=== PATIENT | male | born 1970 | race African-American/Black ===

== ENCOUNTER 2016-06-17 14:57 | Emergency (ER) | payer SELFPAY ==
[2016-06-17] MEDS ORDERED: OXYCODONE HCL IR 5 MG TABLET PO ONE (16:32)
--- NOTE | 2016-06-17 16:32 | ER Document Report ---
ED Medical Screen (RME) - General Chief Complaint: Abdominal Pain Stated Complaint: ABDOMINAL PAIN Time Seen by Provider: 06/17/16 16:29 Mode of Arrival: Ambulatory Information source: Patient Notes: This is a 45-year-old man with a history of alcoholic pancreatitis in the past who presents to the emergency room with epigastric pain for one day. Patient states he drank heavily yesterday TRAVEL OUTSIDE OF THE [place] IN LAST 30 DAYS: No - Related Data Allergies/Adverse Reactions: morphine [Morphine] Allergy (Verified 06/17/16 16:19) Past Medical History - Past Medical History Cardiac Medical History: Reports: Hx Hypertension Renal/ Medical History: Denies: Hx Peritoneal Dialysis Past Surgical History: Reports: Hx Orthopedic Surgery - left arm - Immunizations Immunizations up to date: No Hx Diphtheria, Pertussis, Tetanus Vaccination: No Physical Exam - Vital signs Vitals: Temp Pulse Resp BP Pulse Ox 97.5 F 89 18 142/109 H 100 06/17/16 15:10 06/17/16 15:10 06/17/16 15:10 06/17/16 15:10 06/17/16 15:10 Notes: Physical exam: GENERAL: 45-year-old man, alert and oriented 3, no acute distress HEAD: Atraumatic, normocephalic. EYES: Pupils equal round and reactive to light, extraocular movements intact, sclera anicteric, conjunctiva are normal. ENT: TMs normal, nares patent, oropharynx clear without exudates. Moist mucous membranes. NECK: Normal range of motion, supple without lymphadenopathy or JVD. LUNGS: Breath sounds clear to auscultation bilaterally and equal. No wheezes rales or rhonchi. HEART: Regular rate and rhythm without murmurs, rubs or gallops. ABDOMEN: Soft, normoactive bowel sounds. Mid epigastric tenderness without rebound or guarding. No masses appreciated. EXTREMITIES: Normal range of motion, no pitting or edema. No clubbing or cyanosis. NEUROLOGICAL: Cranial nerves II through XII grossly intact. Normal speech, normal gait. PSYCH: Normal mood, normal affect. SKIN: Warm, Dry, normal turgor, no rashes or lesions noted. Course - Vital Signs Vital signs: Temp Pulse Resp BP Pulse Ox 97.5 F 89 18 142/109 H 100 06/17/16 15:10 06/17/16 15:10 06/17/16 15:10 06/17/16 15:10 06/17/16 15:10
[2016-06-17] MEDS ORDERED: PROMETHAZINE HCL 25 MG TABLET PO ONE (16:33)
[2016-06-17 17:21] LABS: ABSOLUTE LYMPHOCYTES (AUTO) 0.8 10^3/uL (0.5-4.7); ABSOLUTE MONOCYTES (AUTO) 0.4 10^3/uL (0.1-1.4); ABSOLUTE NEUT (AUTO) 6.9 10^3/uL (1.7-8.2); BASOPHILS % (AUTO) 0.3 % (0-2); HEMATOCRIT 51.6 % (37.9-51.0); HEMOGLOBIN 17.4 g/dL (13.5-17.0); HGB HCT DIFFERENCE 0.6; LYMPHOCYTES % (AUTO) 9.7 % (13-45); MEAN CORPUSCULAR HGB CONC 33.8 g/dL (32.0-36.0); MEAN CORPUSCULAR VOLUME 95 fl (80-97); MONOCYTES % (AUTO) 5.4 % (3-13); RED BLOOD COUNT 5.45 10^6/uL (4.35-5.55); RED CELL DISTRIBUTION WIDTH 13.1 % (11.5-14.0); SEGMENTED NEUTROPHILS % (AUTO) 84.6 % (42-78); WHITE BLOOD COUNT 8.2 10^3/uL (4.0-10.5)
[2016-06-17 17:31] LABS: ALANINE AMINOTRANSFERASE 37 U/L (21-72); ALBUMIN 5.2 g/dL (3.5-5.0); ALKALINE PHOSPHATASE 115 U/L (38-126); ASPARTATE AMINO TRANSFERASE 60 U/L (17-59); BILIRUBIN,DIRECT 0.6 mg/dL (0.0-0.4); BLOOD UREA NITROGEN 13 mg/dL (7-20); CALCIUM 10.6 mg/dL (8.4-10.2); CREATININE RESULT 0.82 mg/dL (0.52-1.25); GLUCOSE 114 mg/dL (75-110); TOTAL PROTEIN 10.2 g/dL (6.3-8.2)
[2016-06-17 17:51] LABS: LIPASE 3206.1 U/L (23-300); POTASSIUM 3.6 mmol/L (3.6-5.0)
[2016-06-17 17:52] LABS: ANION GAP 24 (5-19); CARBON DIOXIDE 24 mmol/L (22-30); CHLORIDE 96 mmol/L (98-107); SODIUM 144.2 mmol/L (137-145)
[2016-06-17] MEDS ORDERED: LIDOCAINE 2% VISCOUS SOLN 20 ML UDCUP PO ONE (17:52)
[2016-06-17] MEDS ORDERED: MAG HYDROX/AL HYDROX/SIMETH SUSP 30 ML UDCUP PO ONE (17:52)
[2016-06-17] MEDS ORDERED: METOCLOPRAMIDE HCL ORAL SOLN 10 MG/10 ML UDCUP PO ONE (17:52)
[2016-06-17] MEDS ORDERED: NORMAL SALINE 1000 ML 1,000 ML IV PRN (17:55)
[2016-06-17] MEDS ORDERED: NORMAL SALINE 1000 ML 1,000 ML IV ONE (19:06)
[2016-06-17] MEDS ORDERED: FENTANYL CITRATE INJ/PF 100 MCG/2 ML AMPUL IV PRN (19:07)
--- NOTE | 2016-06-17 19:31 | ER Document Report ---
ED General - General Chief Complaint: Abdominal Pain Stated Complaint: ABDOMINAL PAIN Time Seen by Provider: 06/17/16 16:29 Mode of Arrival: Ambulatory Notes: Patient is a 45-year-old male with past history of alcohol-induced pancreatitis who presents with 24 hours of epigastric abdominal pain with associated nausea. Describes the pain as a severe, constant, stabbing pain that radiates through to his back. States this feels exactly the same as when he has had pancreatitis in the past. Admits to heavy alcohol use last night. He has tolerated oral intake today without difficulty. He has not seen his primary care doctor regarding today's concerns. He denies any chest pain, shortness of breath, headache, neck pain or altered mental status. No fever. TRAVEL OUTSIDE OF THE [place] IN LAST 30 DAYS: No - Related Data Allergies/Adverse Reactions: morphine [Morphine] Allergy (Verified 06/17/16 16:19) Past Medical History - General Information source: Patient - Social History Smoking Status: Never Smoker Frequency of alcohol use: Social Drug Abuse: None Lives with: Spouse/Significant other Family History: Hypertension, Malignancy Patient has suicidal ideation: No Patient has homicidal ideation: No - Past Medical History Cardiac Medical History: Reports: Hx Hypertension Renal/ Medical History: Denies: Hx Peritoneal Dialysis Past Surgical History: Reports: Hx Orthopedic Surgery - left arm - Immunizations Immunizations up to date: No Hx Diphtheria, Pertussis, Tetanus Vaccination: No Review of Systems - Review of Systems Notes: Constitutional: Negative for fever. HENT: Negative for sore throat. Eyes: Negative for visual changes. Cardiovascular: Negative for chest pain. Respiratory: Negative for shortness of breath. Gastrointestinal: Positive for abdominal pain, and nausea Genitourinary: Negative for dysuria. Musculoskeletal: Negative for back pain. Skin: Negative for rash. Neurological: Negative for headaches, weakness or numbness. 10 point ROS negative except as marked above and in HPI. Physical Exam - Vital signs Vitals: Temp Pulse Resp BP Pulse Ox 97.5 F 89 18 142/109 H 100 06/17/16 15:10 06/17/16 15:10 06/17/16 15:10 06/17/16 15:10 06/17/16 15:10 Interpretation: Hypertensive Notes: PHYSICAL EXAMINATION: GENERAL: Well-appearing, well-nourished and in no acute distress. HEAD: Atraumatic, normocephalic. EYES: Pupils equal round and reactive to light, extraocular movements intact, sclera anicteric, conjunctiva are normal. ENT: nares patent, oropharynx clear without exudates. Moist mucous membranes. NECK: Normal range of motion, supple without lymphadenopathy LUNGS: Breath sounds clear to auscultation bilaterally and equal. No wheezes rales or rhonchi. HEART: Regular rate and rhythm without murmurs ABDOMEN: Soft, focal epigastric tenderness to palpation, normoactive bowel sounds. No guarding, no rebound. No masses appreciated. EXTREMITIES: Normal range of motion, no pitting or edema. No cyanosis. NEUROLOGICAL: No focal neurological deficits. Moves all extremities spontaneously and on command. PSYCH: Normal mood, normal affect. SKIN: Warm, Dry, normal turgor, no rashes or lesions noted. Course - Re-evaluation Re-evalutation: 06/17/16 19:26 Patient presents with clinical history and exam and labs to suggest acute pancreatitis. Lipase is markedly elevated today. Patient admits to alcohol use as the trigger for the acute episode of pancreatitis and has a history of the same in the past. At time of arrival, patient's vitals are within normal limits, they are well-appearing and in no acute distress. The patient has tolerated oral intake without difficulty and has not had any vomiting with today 's presentation. Pain was able to be controlled here in the emergency department with oral medications. Monroe score is 0. Patient is an appropriate candidate for outpatient management of this acute episode of pancreatitis using oral pain medications, antiemetics, and recommendations for a clear liquid diet until pain has resolved. At this time will discharge with return precautions and follow-up recommendations. Verbal discharge instructions given a the bedside and opportunity for questions given. Medication warnings reviewed. Patient is in agreement with this plan and has verbalized understanding of return precautions and the need for primary care follow-up in the next 24-72 hours. - Vital Signs Vital signs: Temp Pulse Resp BP Pulse Ox 97.6 F 71 16 139/88 H 96 06/17/16 20:09 06/17/16 20:09 06/17/16 20:09 06/17/16 20:09 06/17/16 20:09 - Laboratory Result Diagrams: 06/17/16 16:54 06/17/16 16:54 Laboratory results interpreted by me: 06/17/16 06/17/16 16:54 16:54 Hgb 17.4 H Hct 51.6 H Seg Neutrophils % 84.6 H Lymphocytes % 9.7 L Chloride 96 L Anion Gap 24 H Glucose 114 H Calcium 10.6 H Direct Bilirubin 0.6 H AST 60 H Total Protein 10.2 H Albumin 5.2 H Lipase 3206.1 H Discharge - Discharge Clinical Impression: Alcohol abuse Acute pancreatitis Qualifiers: Pancreatitis type: alcohol induced Acute pancreatitis complication: unspecified Qualified Code(s): K85.20 - Alcohol induced acute pancreatitis without necrosis or infection Condition: Good Disposition: HOME, SELF-CARE Additional Instructions: You were seen today for alcohol-induced pancreatitis. Please avoid alcohol in any quantity in the future as this could cause a recurrence of your pancreatitis. Please keep in mind that pancreatitis can be a very serious condition that can even result in . Your case today appears very mild and it is safe for you to go home today with medications for pain and nausea. Please drink plenty of fluids over the next several days and try to avoid food ingestion until your pain is resolved. Please return to the emergency department immediately if you develop persistent vomiting that prohibits you from taking your medications or keeping fluids down, you develop a fever of greater than 101F, you have worsening pain, you become confused, you become short of breath, or have any other symptoms that are worrisome to you. Please follow-up with your primary care doctor in the next 24-48 hours. Prescriptions: Ondansetron [Zofran Odt 4 mg Tablet] 1 - 2 tab PO Q4H PRN #15 tab.rapdis PRN Reason: For Nausea/Vomiting Oxycodone HCl [Oxycontin Ir 5 Mg Tablet] 1 - 2 tab PO Q4H PRN #25 tablet PRN Reason: For Pain
[2016-06-17 20:10] VITALS: BP 139/88
== END 2016-06-17 20:10 | disposition home or self-care (01) ==
LOC: ER 14:57
DX: F10.19 Alcohol abuse with unspecified alcohol-induced disorder (principal); K85.20 Alcohol induced acute pancreatitis without necrosis or infection; R10.13 Epigastric pain; R11.0 Nausea; M54.9 Dorsalgia, unspecified; Z88.6 Allergy status to analgesic agent; I10 Essential (primary) hypertension
CPT/HCPCS: 36415; 80053; 83690; 85025; 99284

== ENCOUNTER → 2016-06-23 | Outpatient (CLI) | payer OTHER ==
[2016-06-23 13:54] LABS: ALANINE AMINOTRANSFERASE 22 U/L (21-72); ALBUMIN 4.6 g/dL (3.5-5.0); ALKALINE PHOSPHATASE 73 U/L (38-126); AMYLASE 77 U/L (30-110); ANION GAP 15 (5-19); ASPARTATE AMINO TRANSFERASE 24 U/L (17-59); BILIRUBIN,DIRECT 0.4 mg/dL (0.0-0.4); BILIRUBIN,TOTAL 0.6 mg/dL (0.2-1.3); BLOOD UREA NITROGEN 10 mg/dL (7-20); CALCIUM 10.4 mg/dL (8.4-10.2); CARBON DIOXIDE 31 mmol/L (22-30); CHLORIDE 97 mmol/L (98-107); CHOLESTEROL 160.08 mg/dL (0-200); CREATININE RESULT 0.64 mg/dL (0.52-1.25); Direct HDL 39 mg/dL (>40); GLUCOSE 87 mg/dL (75-110); POTASSIUM 3.9 mmol/L (3.6-5.0); SODIUM 142.9 mmol/L (137-145); TOTAL PROTEIN 8.8 g/dL (6.3-8.2); TRIGLYCERIDES 127 mg/dL (<150)
[2016-06-23 14:05] LABS: DIRECT LDL 87 mg/dL (<100)
== END ==
LOC: CCC 12:59
DX: I10 Essential (primary) hypertension (principal); K85.90 Acute pancreatitis without necrosis or infection, unspecified
CPT/HCPCS: 36415; 80053; 80061; 82150

== ENCOUNTER 2017-04-05 11:25 | Emergency (ER) | payer SELFPAY ==
--- NOTE | 2017-04-05 13:03 | ER Document Report ---
ED General - General Chief Complaint: Cyst Stated Complaint: ABSCESS ON RIGHT SIDE OF FACE Time Seen by Provider: 04/05/17 13:01 Mode of Arrival: Ambulatory Information source: Patient Notes: Patient is a 46-year-old -[place] male who presents with "lump" that started yesterday while driving home. He states it does hurt to touch but he denies any fever, chills, drainage, redness, warmth, difficulty swallowing, difficulty breathing. He was given a Benadryl last night by his sister which she states caused him to go to sleep. He also reports a secondary lump on the left side of his face that will intermittently swell up and then go down on its own. He has never seen a doctor for this. He has no history of abscess or MRSA. TRAVEL OUTSIDE OF THE [place] IN LAST 30 DAYS: No - Related Data Allergies/Adverse Reactions: morphine [Morphine] Allergy (Verified 06/17/16 16:19) Past Medical History - General Information source: Patient - Social History Smoking Status: Current Every Day Smoker Frequency of alcohol use: Social Drug Abuse: Marijuana Family History: Hypertension, Malignancy Patient has suicidal ideation: No Patient has homicidal ideation: No - Past Medical History Cardiac Medical History: Reports: Hx Hypertension Renal/ Medical History: Denies: Hx Peritoneal Dialysis Past Surgical History: Reports: Hx Orthopedic Surgery - left arm - Immunizations Immunizations up to date: No Hx Diphtheria, Pertussis, Tetanus Vaccination: No Review of Systems - Review of Systems Constitutional: See HPI EENT: See HPI Cardiovascular: No symptoms reported Respiratory: No symptoms reported Gastrointestinal: No symptoms reported Genitourinary: No symptoms reported Male Genitourinary: No symptoms reported Musculoskeletal: No symptoms reported Skin: See HPI Hematologic/Lymphatic: No symptoms reported Neurological/Psychological: No symptoms reported Physical Exam - Vital signs Vitals: Temp Pulse Resp BP Pulse Ox 99.6 F 85 16 174/103 H 98 04/05/17 11:31 04/05/17 11:31 04/05/17 11:31 04/05/17 11:31 04/05/17 11:31 - Notes Notes: PHYSICAL EXAM: CONSTITUTIONAL: Alert and oriented, well-appearing and in no acute distress. No respiratory distress, well-hydrated, speaking in full sentences without difficulty. HENT: Normocephalic, atraumatic. Nares clear without erythema, septal hematoma or deviation, airway patent. Oropharynx clear without erythema, tonsilar exudate or malocclusion. Trachea midline. Uvula midline. Moist mucous membranes. 2 cm round indurated area to skin just inferior to mandible below right ear without drainage, warmth scarring and erythema. Also 1 cm round indurated area to skin of left cheek without fluctuance, erythema, warmth. No submandibular, deep space tenderness to palpation or induration or fluctuance. EYES: Pupils equal round and reactive to light, EOM intact. Sclera anicteric, conjunctiva are normal. No entrapment. NECK: supple without lymphadenopathy. No midline tenderness or paraspinous muscle spasms. No step-offs or deformities. ROM intact. HEART: Regular rate and rhythm without murmurs. LUNGS: CTAB and equal. No wheezes, rales or rhonchi. EXTREMITIES: no bony tenderness, erythema, edema, ecchymosis or deformity. Normal range of motion, no pitting edema. No cyanosis. Cap Refill <3 seconds. NEURO: Cranial nerves grossly intact. Normal sensory/motor exams. PSYCH: Normal mood, normal affect. SKIN: Warm and dry. Normal turgor. No rashes or lesions noted. Course - Re-evaluation Re-evalutation: 04/05/17 13:03 Patient seen and examined. Well-appearing, well-hydrated, no respiratory distress. Elevated blood pressure in triage but otherwise normal vital signs. Speaking in full sentences without difficulty. Lesions to face consistent with cellulitis versus folliculitis. No evidence of abscess at this point. Low suspicion for Santos's angina, parotitis, sepsis or other emergent condition. Will treat with antibiotics and anti-inflammatories, advised to apply heat to area. Patient in agreement with plan. At this time, will discharge with return precautions and follow-up recommendations. Verbal discharge instructions given at the bedside and opportunity for questions given. Medication warnings reviewed. Patient is in agreement with this plan and has verbalized understanding of return precautions and the need for primary care follow-up in the next 24-72 hours. - Vital Signs Vital signs: Temp Pulse Resp BP Pulse Ox 99.6 F 85 16 174/103 H 98 04/05/17 11:31 04/05/17 11:31 04/05/17 11:31 04/05/17 11:31 04/05/17 11:31 Discharge - Discharge Clinical Impression: Cellulitis of face Condition: Stable Disposition: HOME, SELF-CARE Additional Instructions: Your exam today is consistent with cellulitis, most likely coming from an infected hair follicle. Does not appear to be a swollen lymph node. We have prescribed antibiotics, take until completed. Return if any worsening symptoms. You can also apply heat to the area. CELLULITIS: You have an infection of your skin and underlying soft tissues called cellulitis. This is due to bacteria, which can enter through any break in the skin, or even through an irritated hair follicle. Untreated, cellulitis will usually worsen. Antibiotics are required. Usually, warm packs or warm soaks, and elevation of the infected area are recommended. You should start getting better within 24 to 36 hours. Most infections respond quickly to the right medication. Follow-up care is important, however, to check for abscess (boil) formation, unsuspected foreign body, or resistant infection. If you develop fever, chills, or if the area of infection is becoming rapidly more swollen or painful, call the doctor at once. MRSA CELLULITIS: You have an infection of your skin and underlying soft tissues called cellulitis. This is due to bacteria, which can enter through any break in the skin, or even through an irritated hair follicle. Untreated, cellulitis will usually worsen and may form an abscess which requires draining. Although many bacterial organisms can cause cellulitis and abscess formations, the most likely bacteria is Methicillin-Resistant Staph Aureus, or MRSA for short. Antibiotics are required. Usually, warm packs or warm soaks, and elevation of the infected area are recommended. You should start getting better within 24 to 36 hours. Most infections respond quickly to the right medication. Follow-up care is important, however, to check for abscess (boil) formation, unsuspected foreign body, or resistant infection. If you develop fever, chills, or if the area of infection is becoming rapidly more swollen or painful, call the doctor at once. ANTIBIOTIC THERAPY: You have been given an antibiotic prescription. It's important that you take all the medication, unless instructed otherwise by your physician. Failure to complete the entire course can result in relapse of your condition. Common side effects of antibiotics include nausea, intestinal cramping, or diarrhea. Women may develop vaginal yeast infections, and babies can get yeast (thrush) in the mouth following the use of antibiotics. Contact your physician if you develop significant side effects from this medication. Allergy to this antibiotic can result in hives, wheezing, faintness, or itching. If symptoms of allergy occur, stop the medication and call the doctor. TRIMETHOPRIM-SULFA: You have been given a prescription for trimethoprim-sulfa (TMS, Septra, Bactrim). This is a combination antibiotic of the sulfa class, often used for urinary tract infections, middle ear infections, bronchitis, shigella intestinal infection, and Pneumocystis pneumonia. TMS is usually well-tolerated. Occasional side effects include nausea and decreased appetite. Septra is not recommended for infants less than two months of age. Do not take this medication if you have experienced severe side effects or allergy to sulfa medicine. You should stop this medicine at once and contact your physician if you develop any rash, joint pain, shortness of breath, bruising, or jaundice ( yellow color in the skin), or if you develop any other new or unusual symptoms. FOLLOW-UP CARE: If you have been referred to a physician for follow-up care, call the physician s office for an appointment as you were instructed or within the next two days. If you experience worsening or a significant change in your symptoms, notify the physician immediately or return to the Emergency Department at any time for re-evaluation. Prescriptions: Ibuprofen [Motrin 600 Mg Tablet] 600 mg PO TID #15 tablet Sulfamethoxazole/Trimethoprim [Bactrim Ds Tablet] 1 tab PO BID 7 Days tablet Forms: Elevated Blood Pressure
[2017-04-05 14:00] VITALS: BP 158/97
== END 2017-04-05 13:55 | disposition home or self-care (01) ==
LOC: ER 11:25
DX: L03.211 Cellulitis of face (principal); I10 Essential (primary) hypertension; Z88.6 Allergy status to analgesic agent
CPT/HCPCS: 99282